=== PATIENT | male | born 1960 | race Hispanic/Latino ===

== ENCOUNTER 2020-10-02 14:43 | Observation (INO) | payer MEDICAID ==
[~2020-10-02] VITALS: Ht 182.9 cm; Wt 96.3 kg
[2020-10-02 15:01] LABS: BASOPHILS % (AUTO) 0.4 % (0.0-5.0); EOSINOPHILS % (AUTO) 0.1 % (0.0-8.0); HEMATOCRIT 48.5 % (42-54); LYMPHOCYTES % (AUTO) 18.6 % (21.0-51.0); MONOCYTES % (AUTO) 7.7 % (3.0-13.0); NEUTROPHILS % (AUTO) 72.4 % (40.0-77.0); PLATELET COUNT (AUTO) 331 K/uL (130-400); RED CELL DISTRIBUTION WIDTH 14.3 % (11.0-15.5); WHITE BLOOD COUNT (AUTO) 13.3 K/uL (4.8-10.8)
[2020-10-02 15:10] LABS: CREATININE 1.2 mg/dL (0.5-1.5); POTASSIUM 3.9 mmol/L (3.5-5.1)
[2020-10-02 15:11] LABS: PROTHROMBIN TIME 10.9 SEC (9.6-11.6)
[2020-10-02 15:13] LABS: PARTIAL THROMBOPLASTIN TIME 28.8 SEC (26.3-35.5)
[2020-10-02 15:14] LABS: ALBUMIN 3.9 g/dL (3.5-5.0); BILIRUBIN,TOTAL 0.3 mg/dL (0.2-1.0); TOTAL PROTEIN, SERUM 8.2 g/dL (6.0-8.3)
[2020-10-02 15:21] LABS: B-TYPE NATRIURETIC PEPTIDE < 5 pg/mL (0-100)
[2020-10-02 17:57] LABS: APPEARANCE,URINE Clear (CLEAR); BILIRUBIN,URINE Negative (NEGATIVE); COLOR,URINE Yellow (YELLOW); GLUCOSE, URINE (UA) Negative (NEGATIVE); KETONES,URINE Trace mg/dL (NEGATIVE); LEUKOCYTE ESTERASE ,URINE Negative (NEGATIVE); NITRATE,URINE Negative (NEGATIVE); OCCULT BLOOD,URINE Negative (NEGATIVE); PH,URINE 5.5 (5.0-8.0); PROTEIN,URINE Negative (NEGATIVE)
[2020-10-02 18:00] VITALS: BP 176/94
[2020-10-02] MEDS ORDERED: ASPIRIN 325MG TAB PO ONE (18:00)
[2020-10-02] MEDS ORDERED: NITROGLYCERIN 1GM OINT 1 INCH/1GM TD ONE (18:00)
[2020-10-02 18:05] LABS: AMPHET/METH SCREEN,URINE NEGATIVE (NEGATIVE); BARBITURATE SCREEN, URINE NEGATIVE (NEGATIVE); BENZODIAZEPINES SCREEN,URINE NEGATIVE (NEGATIVE); CANNABINOID SCREEN,URINE POSITIVE (NEGATIVE); COCAINE SCREEN,URINE POSITIVE (NEGATIVE); OPIATE SCREEN,URINE NEGATIVE (NEGATIVE); PHENCYCLIDINE SCREEN,URINE NEGATIVE (NEGATIVE)
[2020-10-02] MEDS ORDERED: ONDANSETRON 4MG INJ IV PRN (19:30)
[2020-10-02] MEDS ORDERED: ACETAMINOPHEN 325 MG TAB PO PRN ×2 (19:30)
[2020-10-02 19:56] VITALS: BP 159/91
[2020-10-02] MEDS ORDERED: MORPHINE 2 MG SYG IVP PRN (20:00)
[2020-10-02 20:05] VITALS: BP 137/91
[2020-10-02] MEDS: NITROGLYCERIN 1GM OINT 1 INCH/1GM TD SCH (20:14)
[2020-10-02] MEDS: FAMOTIDINE 20MG TAB PO SCH (20:15)
[2020-10-02 22:30] VITALS: BP 122/79
[2020-10-02 23:00] VITALS: BP 106/75
[2020-10-03 04:00] VITALS: BP 107/67
[2020-10-03 04:11] LABS: HEMATOCRIT 43.4 % (42-54); MEAN CORPUSCULAR HEMOGLOBIN 32.1 pg (27.0-33.0); MEAN CORPUSCULAR HGB CONC 33.2 g/dL (32.0-36.0); MEAN CORPUSCULAR VOLUME 96.7 fL (79-99); RED BLOOD CELL COUNT(AUTO) 4.49 MIL/uL (4.50-6.20); RED CELL DISTRIBUTION WIDTH 14.3 % (11.0-15.5)
[2020-10-03] MEDS: NITROGLYCERIN 1GM OINT 1 INCH/1GM TD SCH (04:18)
[2020-10-03 04:33] LABS: ALANINE AMINOTRANSFERASE 21 U/L (12-78); ALBUMIN 3.2 g/dL (3.5-5.0); ASPARTATE AMINOTRANSFERASE 12 U/L (10-37); BILIRUBIN,TOTAL 0.2 mg/dL (0.2-1.0); CARBON DIOXIDE 27 mmol/L (21-32); CHLORIDE 106 mmol/L (101-111); CHOLESTEROL 208 mg/dL (<200); CREATINE KINASE, TOTAL 59 U/L (21-232); GLOMERULAR FILTR. RATE CALC 82 mL/min (>60); GLUCOSE,RANDOM 109 mg/dL (70-105); HDL CHOLESTEROL 43 mg/dL (29-71); LDL DIRECT 121 mg/dL (0-99); MYOGLOBIN 21 ng/mL (10-92); POTASSIUM 3.5 mmol/L (3.5-5.1); SODIUM SERUM 143 mmol/L (136-145); THYROID STIMULATING HORMONE 2.17 uIU/mL (0.36-3.74); TOTAL PROTEIN, SERUM 6.6 g/dL (6.0-8.3); TRIGLYCERIDES 307 mg/dL (30-200); TROPONIN I < 0.04 ng/mL (0.00-0.06); UREA NITROGEN, BLOOD 17 mg/dL (7-18)
[2020-10-03 08:00] VITALS: BP 123/67
[2020-10-03] MEDS: ENOXAPARIN SODIUM 30 MG/0.3 ML SQ SCH ×2 (09:00→11:16)
[2020-10-03] MEDS: FAMOTIDINE 20MG TAB PO SCH ×2 (11:15→21:18)
[2020-10-03] MEDS: ASPIRIN 81 MG EC TAB PO SCH (11:15)
[2020-10-03 12:00] VITALS: BP 146/90
[2020-10-03] MEDS ORDERED: CHLORDIAZEPOXIDE HCL 25 MG CAP PO PRN (13:30)
[2020-10-03] MEDS ORDERED: PHARMACY COMMUNICATION MISC PRN (13:30)
[2020-10-03] MEDS ORDERED: THIAMINE HCL 100 MG TABLET PO ONE (14:30)
[2020-10-03] MEDS ORDERED: NICOTINE 7 MG/ 24 HR PATCH TD SCH ×2 (14:30→19:30)
[2020-10-03] MEDS ORDERED: FOLIC ACID 1 MG TABLET PO ONE (14:30)
[2020-10-03 16:00] VITALS: BP 128/72
[2020-10-03] MEDS ORDERED: TAMS-1 PO (19:51)
[2020-10-03] MEDS ORDERED: ALBU8.5H8 IH (19:51)
[2020-10-03] MEDS ORDERED: ATOR10 PO (19:51)
[2020-10-03 20:00] VITALS: BP 142/82
[2020-10-03] MEDS: HYDROXYZINE 25 MG TABLET PO SCH (21:18)
[2020-10-03] MEDS: ATORVASTATIN 10 MG TABLET PO SCH (21:19)
[2020-10-03 23:55] VITALS: BP 118/68
[2020-10-04 03:24] VITALS: BP 127/78
[2020-10-04 06:38] LABS: BASOPHILS % (AUTO) 0.7 % (0.0-5.0); EOSINOPHILS % (AUTO) 0.8 % (0.0-8.0); HEMATOCRIT 44.3 % (42-54); LYMPHOCYTES % (AUTO) 32.1 % (21.0-51.0); MEAN CORPUSCULAR HGB CONC 32.7 g/dL (32.0-36.0); MEAN CORPUSCULAR VOLUME 97.8 fL (79-99); MONOCYTES % (AUTO) 8.1 % (3.0-13.0); NEUTROPHILS % (AUTO) 57.2 % (40.0-77.0); PLATELET COUNT (AUTO) 301 K/uL (130-400); RED BLOOD CELL COUNT(AUTO) 4.53 MIL/uL (4.50-6.20); RED CELL DISTRIBUTION WIDTH 14.1 % (11.0-15.5); WHITE BLOOD COUNT (AUTO) 10.5 K/uL (4.8-10.8)
[2020-10-04 06:49] LABS: CREATININE 0.9 mg/dL (0.5-1.5)
[2020-10-04 08:00] VITALS: BP 115/81
[2020-10-04] MEDS: ENOXAPARIN SODIUM 30 MG/0.3 ML SQ SCH (09:00)
[2020-10-04 12:00] VITALS: BP 145/82
[2020-10-04] MEDS ORDERED: REGADENOSON 0.4 MG/5 ML PF SYG IVP SCH (12:30)
[2020-10-04] MEDS ORDERED: NICOTINE 7 MG/ 24 HR PATCH TD SCH ×2 (12:30→14:30)
[2020-10-04] MEDS: HYDROXYZINE 25 MG TABLET PO SCH ×3 (14:00→20:29)
[2020-10-04] MEDS: FAMOTIDINE 20MG TAB PO SCH ×2 (14:46→20:29)
[2020-10-04] MEDS: ASPIRIN 81 MG EC TAB PO SCH (14:47)
[2020-10-04] MEDS: TAMSULOSIN HCL 0.4 MG CAP.ER.24H PO SCH (14:47)
[2020-10-04] MEDS: THIAMINE HCL 100 MG TABLET PO SCH (14:47)
[2020-10-04] MEDS: FOLIC ACID 1 MG TABLET PO SCH (14:51)
[2020-10-04] MEDS: FLUOXETINE HCL 10 MG CAPSULE PO SCH (14:51)
[2020-10-04 16:00] VITALS: BP 124/84
[2020-10-04 20:00] VITALS: BP 104/59
[2020-10-04] MEDS: ATORVASTATIN 10 MG TABLET PO SCH (20:29)
[2020-10-04] MEDS ORDERED: LACTULOSE 20 GM/30 ML UDCUP PO PRN (21:30)
[2020-10-05] VITALS: BP 121/69
[2020-10-05 04:00] VITALS: BP 102/69
[2020-10-05 06:35] LABS: BASOPHILS % (AUTO) 0.5 % (0.0-5.0); EOSINOPHILS % (AUTO) 0.8 % (0.0-8.0); HEMATOCRIT 44.7 % (42-54); LYMPHOCYTES % (AUTO) 29.6 % (21.0-51.0); MEAN CORPUSCULAR HEMOGLOBIN 31.5 pg (27.0-33.0); MEAN CORPUSCULAR HGB CONC 32.2 g/dL (32.0-36.0); MEAN CORPUSCULAR VOLUME 97.8 fL (79-99); MONOCYTES % (AUTO) 8.3 % (3.0-13.0); NEUTROPHILS % (AUTO) 60.1 % (40.0-77.0); PLATELET COUNT (AUTO) 310 K/uL (130-400); RED BLOOD CELL COUNT(AUTO) 4.57 MIL/uL (4.50-6.20); RED CELL DISTRIBUTION WIDTH 14.1 % (11.0-15.5); WHITE BLOOD COUNT (AUTO) 10.9 K/uL (4.8-10.8)
[2020-10-05 06:44] LABS: MAGNESIUM 2.2 mg/dL (1.80-2.40); POTASSIUM 3.9 mmol/L (3.5-5.1)
[2020-10-05 08:00] VITALS: BP 94/66
[2020-10-05] MEDS: THIAMINE HCL 100 MG TABLET PO SCH (08:48)
[2020-10-05] MEDS: FAMOTIDINE 20MG TAB PO SCH (08:49)
[2020-10-05] MEDS: ASPIRIN 81 MG EC TAB PO SCH (08:49)
[2020-10-05] MEDS: HYDROXYZINE 25 MG TABLET PO SCH (08:49)
[2020-10-05] MEDS: FLUOXETINE HCL 10 MG CAPSULE PO SCH (08:49)
[2020-10-05] MEDS: TAMSULOSIN HCL 0.4 MG CAP.ER.24H PO SCH (08:49)
[2020-10-05] MEDS: FOLIC ACID 1 MG TABLET PO SCH (08:50)
[2020-10-05] MEDS: ENOXAPARIN SODIUM 30 MG/0.3 ML SQ SCH (08:51)
== END 2020-10-05 10:56 | disposition left against medical advice (07) ==
LOC: EDH 14:43 → EEVIPCON 14:43 → EDHIP 19:29 → INTOOBSV 19:29 → 4DH 22:47
PROVIDERS: ADMIT Internal Medicine; ATTEND Internal Medicine
DX: I24.9 Acute ischemic heart disease, unspecified (principal); Z20.822 Contact with and (suspected) exposure to COVID-19; I10 Essential (primary) hypertension; R07.89 Other chest pain; J44.9 Chronic obstructive pulmonary disease, unspecified; F14.10 Cocaine abuse, uncomplicated; F12.10 Cannabis abuse, uncomplicated; F19.10 Other psychoactive substance abuse, uncomplicated; E78.00 Pure hypercholesterolemia, unspecified; F17.210 Nicotine dependence, cigarettes, uncomplicated; E78.2 Mixed hyperlipidemia; F10.10 Alcohol abuse, uncomplicated; F31.30 Bipolar disorder, current episode depressed, mild or moderate severity, unspecified; F41.1 Generalized anxiety disorder; I45.10 Unspecified right bundle-branch block; Z90.49 Acquired absence of other specified parts of digestive tract; Z79.899 Other long term (current) drug therapy; Z98.890 Other specified postprocedural states; Z79.82 Long term (current) use of aspirin
CPT/HCPCS: 36415 ×4; 71045; 78452; 80048 ×2; 80053 ×2; 80061; 80305; 81003; 82550 ×2; 83735; 83874; 83880; 84443; 84484 ×3; 85025 ×3; 85027; 85610; 85730; 87426; 93005 ×2; 93017; 96372; 96374; 99285; A9500 ×2; G0378 ×19; J1650 ×2; J2785; J2405